=== PATIENT | female | born 1935 | race Caucasian/White ===

== ENCOUNTER → 2016-05-12 | Outpatient (CLI) | payer OTHER | LOC: OPSV 05-10 10:00 | DX: M81.0 Age-related osteoporosis without current pathological fracture (principal); M84.48XA Pathological fracture, other site, initial encounter for fracture; Z88.0 Allergy status to penicillin; Z88.5 Allergy status to narcotic agent; Z88.1 Allergy status to other antibiotic agents | CPT/HCPCS: 96372 ==

== ENCOUNTER → 2016-05-13 | Outpatient (CLI) | payer OTHER | LOC: HEART 5 07:57 | DX: I25.10 Atherosclerotic heart disease of native coronary artery without angina pectoris (principal); I49.3 Ventricular premature depolarization; I35.1 Nonrheumatic aortic (valve) insufficiency; I34.0 Nonrheumatic mitral (valve) insufficiency | CPT/HCPCS: 78452; 93017; A9502; J2785 ==

== ENCOUNTER 2020-03-01 10:21 | Inpatient (IN) | payer OTHER ==
[~2020-03-01 10:21] MED LIST: ACTOS15 MG PO; ASPIR 8181 MG PO; AVAPRO300 MG PO; GLUCOTROL XL 5 M5 MG PO; IPRAT-ALBUT 0.5-3 ML PO; K-DUR TAB 10 M10 MEQ PO; LACTULOSE20 GM/30 M PO; LANTUS100 UNIT/1 SQ; LASIX20 MG PO; LEVAQUIN500 MG PO; LIPITOR TAB 2020 MG PO; METOPROLOL TART25 MG PO; MULTIVITAMINS1 EAC2 PO; NORVASC2.5 MG PO; SYNTHROID112 MCG PO; VITAMIN B-650 MG PO
[2020-03-01 12:23] LABS: HEMOGLOBIN 10.7 gm/dl (12.3-15.3); RED BLOOD COUNT 3.58 M/UL (4.00-5.10); WHITE BLOOD COUNT 5.3 K/UL (4.5-11.0)
[2020-03-01 12:56] LABS: BUN/CREATININE RATIO 15 (0-10)
[2020-03-02] MEDS ORDERED: VITAMIN D21250 MCG PO (03:37)
[2020-03-02] MEDS ORDERED: BENICAR 20 MG T20 MG PO (03:40)
[2020-03-02 04:14] LABS: HEMOGLOBIN 9.6 gm/dl (12.3-15.3)
[2020-03-02 04:18] LABS: RED BLOOD COUNT 3.19 M/UL (4.00-5.10); WHITE BLOOD COUNT 8.3 K/UL (4.5-11.0)
[2020-03-02 04:49] LABS: BUN/CREATININE RATIO 18 (0-10)
[2020-03-04 04:11] LABS: HEMOGLOBIN 9.7 gm/dl (12.3-15.3); RED BLOOD COUNT 3.37 M/UL (4.00-5.10); WHITE BLOOD COUNT 8.5 K/UL (4.5-11.0)
[2020-03-04 04:32] LABS: BUN/CREATININE RATIO 39 (0-10)
[2020-03-05 05:38] LABS: HEMOGLOBIN 9.7 gm/dl (12.3-15.3); RED BLOOD COUNT 3.23 M/UL (4.00-5.10); WHITE BLOOD COUNT 7.1 K/UL (4.5-11.0)
[2020-03-05 05:49] LABS: BUN/CREATININE RATIO 35 (0-10)
[2020-03-05] MEDS ORDERED: DEXAMETHASONE6 MG PO (11:33)
== END 2020-03-05 19:45 | disposition home or self-care (01) | DRG 177 ==
LOC: ER1 10:21 → CDU 15:22 → MED SURG 4 15:22
PROVIDERS: Family Medicine; Internal Medicine; ADMIT Internal Medicine
PROC: XW033E5 Introduction of Remdesivir Anti-infective into Peripheral Vein, Percutaneous Approach, New Technology Group 5 (ICD-10-PCS; 2020-03-01)
PROC: 8E0ZXY6 Isolation (ICD-10-PCS; principal; 2020-03-03)
PROC: XW13325 Transfusion of Convalescent Plasma (Nonautologous) into Peripheral Vein, Percutaneous Approach, New Technology Group 5 (ICD-10-PCS; 2020-03-03)
DX: U07.1 COVID-19 (principal); J12.89 Other viral pneumonia; I21.4 Non-ST elevation (NSTEMI) myocardial infarction; I40.8 Other acute myocarditis; I13.0 Hypertensive heart and chronic kidney disease with heart failure and stage 1 through stage 4 chronic kidney disease, or unspecified chronic kidney disease; N18.4 Chronic kidney disease, stage 4 (severe); I50.42 Chronic combined systolic (congestive) and diastolic (congestive) heart failure; E87.6 Hypokalemia; E11.9 Type 2 diabetes mellitus without complications; E11.21 Type 2 diabetes mellitus with diabetic nephropathy; E11.40 Type 2 diabetes mellitus with diabetic neuropathy, unspecified; N18.9 Chronic kidney disease, unspecified; E11.22 Type 2 diabetes mellitus with diabetic chronic kidney disease; Z88.1 Allergy status to other antibiotic agents; Z88.0 Allergy status to penicillin; Z88.2 Allergy status to sulfonamides; Z88.8 Allergy status to other drugs, medicaments and biological substances; I65.29 Occlusion and stenosis of unspecified carotid artery; E78.5 Hyperlipidemia, unspecified; H54.7 Unspecified visual loss; Z85.038 Personal history of other malignant neoplasm of large intestine; Z82.49 Family history of ischemic heart disease and other diseases of the circulatory system; E03.9 Hypothyroidism, unspecified
CPT/HCPCS: ECHO; 36415; 71045; 80048; 80053; 80076; 81001; 82550; 82553; 82962; 83036; 83605; 83735; 83874; 83880; 84484; 85025; 85027; 85610; 85730; 86710; 86900; 86901; 86927; 87040; 93005; 93306; 96365; 96366; 96368; 96372; 96375; 99285; J1100; J1644; J1650; J7030; U0002

== ENCOUNTER → 2020-05-07 | Outpatient (CLI) | payer OTHER ==
[~2020-05-07] VITALS: Ht 149.9 cm; Wt 65.8 kg
[~2020-05-07] MED LIST changes: +BENICAR 20 MG T20 MG PO; +DEXAMETHASONE6 MG PO; +VITAMIN D21250 MCG PO
== END ==
LOC: OPSV 13:00
DX: M81.0 Age-related osteoporosis without current pathological fracture (principal); M84.48XA Pathological fracture, other site, initial encounter for fracture
CPT/HCPCS: 96372

== ENCOUNTER → 2020-05-13 | Outpatient (CLI) | payer OTHER | LOC: HEART 5 13:51 | DX: I25.10 Atherosclerotic heart disease of native coronary artery without angina pectoris (principal); I51.89 Other ill-defined heart diseases; I10 Essential (primary) hypertension; I34.0 Nonrheumatic mitral (valve) insufficiency; I27.20 Pulmonary hypertension, unspecified; I37.1 Nonrheumatic pulmonary valve insufficiency | CPT/HCPCS: 93306 ==

== ENCOUNTER → 2020-11-05 | Outpatient (CLI) | payer OTHER | LOC: OPSV 12:00 | DX: M84.48XA Pathological fracture, other site, initial encounter for fracture (principal); M81.0 Age-related osteoporosis without current pathological fracture | CPT/HCPCS: 96372 ==

== ENCOUNTER → 2021-07-07 | Outpatient (CLI) | payer OTHER ==
[~2021-07-07] VITALS: Ht 149.9 cm; Wt 62.1 kg
== END ==
LOC: OPSV 14:54
DX: M81.0 Age-related osteoporosis without current pathological fracture (principal); M84.48XA Pathological fracture, other site, initial encounter for fracture
CPT/HCPCS: 96372

== ENCOUNTER 2021-07-27 12:16 | Inpatient (IN) | payer OTHER ==
[~2021-07-27] VITALS: Ht 147.3 cm; Wt 63.0 kg
[~2021-07-27 12:16] MED LIST changes: -GLUCOTROL XL 5 M5 MG PO; +GLUCOTROL5 MG PO; -K-DUR TAB 10 M10 MEQ PO; -LIPITOR TAB 2020 MG PO; +LIPITOR40 MG PO; -NORVASC2.5 MG PO; +NORVASC5 MG PO; +POTASSIUM CHLO20 ME2 PO; +SYNTHROID100 MCG PO; -SYNTHROID112 MCG PO
[2021-07-27 12:46] LABS: HEMOGLOBIN 11.3 gm/dl (12.3-15.3); RED BLOOD COUNT 3.62 M/UL (4.00-5.10)
[2021-07-27] MEDS ORDERED: LUTEIN10 MG PO (16:16)
[2021-07-27] MEDS ORDERED: ENTRESTO 24 MG1 EACH PO (16:17)
[2021-07-28 04:07] LABS: BUN/CREATININE RATIO 29 (0-10)
[2021-07-28 04:11] LABS: HEMOGLOBIN 9.9 gm/dl (12.3-15.3)
[2021-07-28 04:12] LABS: RED BLOOD COUNT 3.15 M/UL (4.00-5.10); WHITE BLOOD COUNT 6.7 K/UL (4.5-11.0)
== END 2021-07-28 20:00 | disposition short-term general hospital (02) | DRG 281 ==
LOC: ER1 12:16 → CDU 15:20 → PROG CARE 21:44
PROVIDERS: Emergency Medicine; ADMIT Internal Medicine
PROC: B24BZZZ Ultrasonography of Heart with Aorta (ICD-10-PCS; 2021-07-27)
PROC: 4A023N7 Measurement of Cardiac Sampling and Pressure, Left Heart, Percutaneous Approach (ICD-10-PCS; principal; 2021-07-28)
PROC: B2111ZZ Fluoroscopy of Multiple Coronary Arteries using Low Osmolar Contrast (ICD-10-PCS; 2021-07-28)
DX: I21.4 Non-ST elevation (NSTEMI) myocardial infarction (principal); I13.0 Hypertensive heart and chronic kidney disease with heart failure and stage 1 through stage 4 chronic kidney disease, or unspecified chronic kidney disease; I50.22 Chronic systolic (congestive) heart failure; E87.1 Hypo-osmolality and hyponatremia; I50.32 Chronic diastolic (congestive) heart failure; N18.30 Chronic kidney disease, stage 3 unspecified; I25.10 Atherosclerotic heart disease of native coronary artery without angina pectoris; I73.9 Peripheral vascular disease, unspecified; M19.91 Primary osteoarthritis, unspecified site; D64.9 Anemia, unspecified; H54.8 Legal blindness, as defined in USA; E11.65 Type 2 diabetes mellitus with hyperglycemia; E11.22 Type 2 diabetes mellitus with diabetic chronic kidney disease; E11.319 Type 2 diabetes mellitus with unspecified diabetic retinopathy without macular edema; E11.51 Type 2 diabetes mellitus with diabetic peripheral angiopathy without gangrene; Z96.662 Presence of left artificial ankle joint; E03.9 Hypothyroidism, unspecified; E78.5 Hyperlipidemia, unspecified; Z88.2 Allergy status to sulfonamides; Z79.899 Other long term (current) drug therapy; Z86.73 Personal history of transient ischemic attack (TIA), and cerebral infarction without residual deficits; Z82.49 Family history of ischemic heart disease and other diseases of the circulatory system; Z83.3 Family history of diabetes mellitus; Z80.1 Family history of malignant neoplasm of trachea, bronchus and lung; Z95.1 Presence of aortocoronary bypass graft; Z79.82 Long term (current) use of aspirin; Z88.0 Allergy status to penicillin; Z98.890 Other specified postprocedural states
CPT/HCPCS: ECHO; 36415; 70450; 71045; 80048; 80053; 80061; 80076; 82550; 82553; 82962; 83880; 84484; 85025; 85027; 85610; 85730; 93005; 93306; 96374; 99152; 99153; 99285; C1769; C1894; J1644; J2250; J2405; J3010; Q9965